=== PATIENT | female | born 1995 | race African-American/Black ===

== ENCOUNTER 2020-12-19 13:30 | Emergency (ER) | payer OTHER ==
[2020-12-19 14:52] LABS: BASOPHIL 1.1 % (0-2); EOSINOPHIL 1.5 % (0-5); HCT 24.2 % (37.0-47.0); LYMPHOCYTE 37.2 % (15-48); MCHC 26.9 g/dL (32.0-36.0); MCV 66.9 fL (78.0-100.0); MPV 8.6 fL (6.0-9.5); NEUTROPHIL 52.6 % (41-80); NRBC 0.4; PLT 484 K/uL (150-400); RBC 3.62 M/uL (4.20-5.40); RDW 16.7 % (11.5-14.0); WBC 5.3 K/uL (4.0-10.5)
[2020-12-19 14:55] LABS: HGB 6.5 g/dl (12.5-16.0)
[2020-12-19] MEDS ORDERED: PROVERA10 MG PO (17:46)
[2020-12-19 18:01] LABS: BUN/CREAT RATIO (CALC) 16.5 RATIO; CREATININE 0.85 mg/dL (0.51-0.95); POTASSIUM 3.8 mmol/L (3.5-5.1)
== END 2020-12-19 21:25 | disposition home or self-care (01) ==
LOC: FER 13:30
PROVIDERS: Internal Medicine
DX: N93.9 Abnormal uterine and vaginal bleeding, unspecified (principal); D62 Acute posthemorrhagic anemia
CPT/HCPCS: 36415; 36430; 80048; 85025; 86850; 86900; 86901; 86922; P9016